=== PATIENT | female | born 2000 | race African-American/Black ===

== ENCOUNTER 2018-04-19 14:28 | Emergency (ER) | payer MEDICAID ==
[~2018-04-19] VITALS: Ht 167.6 cm; Wt 63.7 kg
[2018-04-19 14:31] VITALS: BP 126/58
--- NOTE | 2018-04-19 14:39 | NUR ---
HARSHAL BORDEN IN ROOM FOR EXAM, URINE COLLECTED AND SENT.
--- NOTE | 2018-04-19 14:53 | NUR ---
C/O NON-RADIATING RT SIDED ABDOMINAL PAIN WITH N/V X 3 DAYS, DIARRHEA X 1 DAY; ; LMP 03/04/2018. +PREGANCY, STATES "FEELS LIKE LAST TIME I WAS " DENIES DYSURIA, FEVERS/CHILLS. ABD ROUND, SOFT, NT TO PALPATION. RESP EVEN AND UNLABORED, ON RA@98%, BOYFRIEND AT BEDSIDE, WILL CONT TO MONITOR. HX; DENIES RX; DENIES
[2018-04-19 15:17] LABS: BASOPHILS # (AUTO) 0.1 K/uL (0.00-0.22); BASOPHILS % (AUTO) 0.7 % (0.0-2.0); EOSINOPHILS % (AUTO) 0.1 % (0.0-4.0); HEMATOCRIT 36.9 % (36-48); HEMOGLOBIN 12.7 g/dL (12.0-16.0); LYMPHOCYTES % (AUTO) 21.1 % (20.5-51.1); MEAN CORPUSCULAR HEMOGLOBIN 31 pg (27-31); MEAN CORPUSCULAR HGB CONC 34 g/dL (33-37); MEAN CORPUSCULAR VOLUME 90.7 fL (80-94); MONOCYTES # (AUTO) 0.8 K/uL (0.8-1.0); MONOCYTES % (AUTO) 8.5 % (1.7-9.3); NEUTROPHILS # (AUTO) 6.5 K/uL (1.8-7.7); NEUTROPHILS % (AUTO) 69.6 % (42.2-75.2); PLATELET COUNT (AUTO) 283 K/uL (140-450); RED BLOOD CELL COUNT(AUTO) 4.07 MIL/uL (4.20-5.40); RED CELL DISTRIBUTION WIDTH 12.9 % (11.6-13.7); WHITE BLOOD COUNT (AUTO) 9.4 K/uL (4.5-11.0)
[2018-04-19 15:18] LABS: APPEARANCE,URINE CLEAR (CLEAR); BILIRUBIN,URINE NEGATIVE (NEGATIVE); BLOOD, URINE NEGATIVE (NEGATIVE); COLOR,URINE YELLOW (YELLOW); LEUKOCYTE ESTERASE ,URINE NEGATIVE (NEGATIVE); NITRITE, URINE NEGATIVE (NEGATIVE); PH,URINE 6.5 (5.0-9.0); UGLUCOSE NEGATIVE (NEGATIVE)
[2018-04-19 15:59] LABS: ANION GAP 14.9 (8-16); CARBON DIOXIDE 23.1 mmol/L (21-32); CREATININE 0.8 mg/dL (0.6-1.3)
--- NOTE | 2018-04-19 16:00 | NUR ---
Pt resting comfortably in [facility] at this time with boyfriend at bedside. VSS. Will continue to monitor.
[2018-04-19 16:04] LABS: TOTAL BILIRUBIN 0.5 mg/dL (0.0-1.0)
[2018-04-19 17:05] VITALS: BP 119/56
--- NOTE | 2018-04-19 17:06 | NUR ---
Patient discharged with v/s stable. Written and verbal after care instructions given and explained. Patient alert, oriented and verbalized understanding of instructions. Ambulatory with steady gait. All questions addressed prior to discharge. ID band removed. Patient advised to follow up with PMD. Rx of Acetaminophen and vitamins given. Patient educated on indication of medication including possible reaction and side effects. Opportunity to ask questions provided and answered.
== END 2018-04-19 17:06 | disposition home or self-care (01) ==
LOC: MED 14:28
DX: O00.202 Left ovarian pregnancy without intrauterine pregnancy (principal); N83.9 Noninflammatory disorder of ovary, fallopian tube and broad ligament, unspecified
CPT/HCPCS: 36415; 76817; 80053; 81003; 81025; 83690; 84702; 85025; 86900; 86901; 99285; Q0092